=== PATIENT | male | born 1955 | race African-American/Black ===

== ENCOUNTER → 2016-12-04 | Outpatient (CLI) | payer OTHER ==
[~2016-12-04] MED LIST: CIPR-9 PO
[2016-12-04 11:58] LABS: AUTOMATED NEUTROPHIL # 3.2 TH/MM3 (1.8-7.7); BASOPHIL % 0.6 % (0.0-2.0); EOSINOPHIL # 0.1 TH/MM3 (0-0.4); EOSINOPHIL % 1.9 % (0.0-4.0); HEMATOCRIT 47.4 % (39.0-51.0); HEMO FLAGS DIFF FINAL; LYMPH % 32.8 % (9.0-44.0); LYMPHOCYTE # 1.9 TH/MM3 (1.0-4.8); MEAN CELL VOLUME 88.3 FL (80.0-100.0); MEAN CORPUSCULAR HEMOGLOBIN 30.7 PG (27.0-34.0); MEAN CORPUSCULAR HGB CONC 34.8 % (32.0-36.0); NEUT % 55.7 % (16.0-70.0); PLATELET COUNT 217 TH/MM3 (150-450); RED BLOOD COUNT 5.37 MIL/MM3 (4.50-5.90); RED CELL DISTRIBUTION WIDTH 13.1 % (11.6-17.2); WHITE BLOOD COUNT 5.8 TH/MM3 (4.0-11.0)
[2016-12-04 12:37] LABS: ANION GAP 7 MEQ/L (5-15); AST (GOT) 58 U/L (15-37); BLOOD UREA NITROGEN 17 MG/DL (7-18); CHLORIDE 103 MEQ/L (98-107); GLOMERULAR FILTRATION RATE 94 ML/MIN (>89); GLUCOSE,FASTING 85 MG/DL (74-99); POTASSIUM 4.3 MEQ/L (3.5-5.1); SODIUM (NA) 139 MEQ/L (136-145)
[2016-12-04 12:38] LABS: ALT (GPT) 78 U/L (12-78)
[2016-12-04 12:48] LABS: ALKALINE PHOSPHATASE 82 U/L (45-117); HDL CHOLESTEROL 55.1 MG/DL (40.0-60.0); LDL CHOLESTEROL 139 MG/DL (0-99)
== END ==
LOC: CLAB 11:34
PROVIDERS: ATTEND Nurse Practitioner Family
DX: B19.20 Unspecified viral hepatitis C without hepatic coma (principal); I10 Essential (primary) hypertension; R39.12 Poor urinary stream
CPT/HCPCS: 36415; 80053; 80061; 84153; 84443; 85025

== ENCOUNTER → 2016-12-24 | Outpatient (CLI) | payer OTHER ==
[~2016-12-24] MED LIST changes: +GABA300C5 PO; +NAPR500T PO
[2016-12-24 15:39] LABS: BICARBONATE 28.8 MEQ/L (21.0-32.0)
== END ==
LOC: CLAB 14:47
PROVIDERS: ATTEND Nurse Practitioner Family
DX: R97.20 Elevated prostate specific antigen [PSA] (principal)
CPT/HCPCS: 36415; 80069

== ENCOUNTER → 2016-12-25 | Outpatient (CLI) | payer OTHER ==
[~2016-12-25] MED LIST changes: +IOHEXOL 350 MG/ML 10 ML VIAL (for RAD DIAG) IV ONE; +LISI-519 PO; +PROS5TAB PO; +TAMS5CAP PO
--- NOTE | 2016-12-25 15:26 | RADRPT ---
EXAM DATE/TIME: 12/25/2016 14:46 [facility] COMPARISON: No previous studies available for comparison. INDICATIONS : Mass, abnormal PSA. IV CONTRAST: 85 cc Omnipaque 350 (iohexol) IV ORAL CONTRAST: Prescribed oral contrast ingested. RADIATION DOSE: 9.48 CTDIvol (mGy) MEDICAL HISTORY : None SURGICAL HISTORY : None. ENCOUNTER: Initial ACUITY: 1 day PAIN SCALE: 0/10 LOCATION: lower quadrant TECHNIQUE: Volumetric scanning of the abdomen and pelvis was performed. Using automated exposure control and ad justment of the mA and/or kV according to patient size, radiation dose was kept as low as reasonably achievable to obtain optimal diagnostic quality images. DICOM format image data is available electro nically for review and comparison. FINDINGS: LOWER LUNGS: The visualized lower lungs are clear. A small hiatal hernia is noted. LIVER: Homogeneous density without lesion. There is no dilation of the biliary tree. No calcified gallston es. SPLEEN: Normal size without lesion. PANCREAS: Within normal limits. KIDNEYS: Normal in size and shape. There is no mass, stone or hydronephrosis. ADRENAL GLANDS: Within normal limits. VASCULAR: There is no aortic aneurysm. BOWEL/MESENTERY: The stomach, small bowel, and colon demonstrate no acute abnormality. There is no free intraperitone al air or fluid. ABDOMINAL WALL: Within normal limits. RETROPERITONEUM: There is no lymphadenopathy. BLADDER: No wall thickening or mass. REPRODUCTIVE: The prostate gland is markedly enlarged. INGUINAL: There is no lymphadenopathy or hernia. MUSCULOSKELETAL: Sclerotic foci are noted within the left ischium and right iliac crest and are nonspecific. Different ial diagnosis includes bone islands and sclerotic metastases. Bone scan may be helpful for further ev aluation if clinically indicated. CONCLUSION: 1. Markedly enlarged prostate. 2. Sclerotic foci are noted within the left ischium and right iliac crest and are nonspecific. Differ ential diagnosis includes bone islands and sclerotic metastases. Bone scan may be helpful for further evaluation if clinically indicated. 3. Small hiatal hernia. Torres Escudero MD on December 25, 2016 at 15:14 Board Certified Radiologist. This report was verified electronically.
== END ==
LOC: HRAD 13:04
PROVIDERS: ATTEND Family Medicine
DX: R97.20 Elevated prostate specific antigen [PSA] (principal)
CPT/HCPCS: 74177; Q9967

== ENCOUNTER → 2017-01-02 | Outpatient (CLI) | payer OTHER ==
[~2017-01-02] MED LIST changes: -IOHEXOL 350 MG/ML 10 ML VIAL (for RAD DIAG) IV ONE
== END ==
LOC: CLAB 12:12
PROVIDERS: ATTEND Nurse Practitioner Family
DX: R97.20 Elevated prostate specific antigen [PSA] (principal)
CPT/HCPCS: 36415; 84153

== ENCOUNTER → 2017-01-06 | Outpatient (CLI) | payer OTHER ==
--- NOTE | 2017-01-06 18:34 | RADRPT ---
EXAM DATE/TIME: 01/06/2017 12:33 [facility] COMPARISON: CHEST SINGLE AP, October 14, 2015, 20:51. CT BRAIN W/O CONTRAST, October 14, 2015, 22:08. CT ABDOMEN & PELV IS W CONTRAST, December 25, 2016, 14:46. PRIOR BONE SCANS: No correlative bone scan available for comparison. INDICATIONS : Schlerotic focci on left iliac crest. DOSE: 31.3 mCi Tc99m MDP IV IMAGING: SPECT/CT imaging with fusion was performed. RADIATION DOSE: 4.78 CTDIvol (mGy) MEDICAL HISTORY : None SURGICAL HISTORY : None. ENCOUNTER: Initial ACUITY: 1 day PAIN SCALE: 0/10 LOCATION: Right hip. TECHNIQUE: Three hours post intravenous administration of radiotracer, whole body bone scan imaging was performe d. FINDINGS: Images demonstrate a homogeneous pattern of uptake in the soft tissue. No hyperemic areas are identi fied. On delayed scanning, there is focally increased uptake notable in the posterior left seventh ri b which is likely traumatic. Mild degenerative type uptake in the spine, hips and knees. To further evaluate the pelvis, SPECT imaging was performed in sagittal, axial and coronal planes. A ttenuation correction was performed with computed tomography and both the attenuation correction and non-attenuation corrected data sets were reviewed. There is a normal pattern of uptake. No focal abn ormalities are seen. Specifically, no significant abnormal uptake is identified at sites of sclerotic change focally present in the iliac crest and left ischium. CONCLUSION: Sclerotic foci in the pelvis appear benign on bone scan. Uptake involving the posterior left seventh rib, likely traumatic however correlation with CT scan of the chest would be suggested. Isaac Hairston MD on January 06, 2017 at 18:27 Board Certified Radiologist. This report was verified electronically.
== END ==
LOC: HRAD 08:09
PROVIDERS: ATTEND Nurse Practitioner Family
DX: R93.8 Abnormal findings on diagnostic imaging of other specified body structures (principal)
CPT/HCPCS: 78306; 78320; 78399; A9503

== ENCOUNTER → 2017-01-15 | Outpatient (CLI) | payer OTHER ==
[~2017-01-15] MED LIST changes: -CIPR-9 PO; -TAMS5CAP PO
[2017-01-15 11:27] LABS: BICARBONATE 26.2 MEQ/L (21.0-32.0)
== END ==
LOC: CLAB 10:38
PROVIDERS: ATTEND Nurse Practitioner Family
DX: R94.8 Abnormal results of function studies of other organs and systems (principal)
CPT/HCPCS: 36415; 80069

== ENCOUNTER → 2017-01-17 | Outpatient (CLI) | payer OTHER ==
[~2017-01-17] MED LIST changes: +IOHEXOL 350 MG/ML 10 ML VIAL (for RAD DIAG) IV ONE
--- NOTE | 2017-01-17 13:40 | RADRPT ---
EXAM DATE/TIME: 01/17/2017 13:20 [facility] COMPARISON: BONE SCAN (WHOLE BODY) W SPECT, January 06, 2017, 12:33. INDICATIONS : Left 7th rib lesion seen on bone scan. IV CONTRAST: 75 cc Omnipaque 350 (iohexol) IV RADIATION DOSE: 5.61 CTDIvol (mGy) MEDICAL HISTORY : Cancer, Prostate issues. SURGICAL HISTORY : None. ENCOUNTER: Initial ACUITY: 2 weeks PAIN SCALE: 0/10 LOCATION: chest TECHNIQUE: Volumetric scanning of the chest was performed. Using automated exposure control and adjustment of t he mA and/or kV according to patient size, radiation dose was kept as low as reasonably achievable to obtain optimal diagnostic quality images. DICOM format image data is available electronically for review and comparison. Follow-up recommendations for detected pulmonary nodules are based at a minimum on nodule size and pa tient risk factors according to Fleischner Society Guidelines. FINDINGS: LUNGS: There is no consolidation or pneumothorax. No concerning pulmonary nodule is visualized. PLEURA: There is no pleural thickening or pleural effusion. MEDIASTINUM: The heart and great vessels demonstrate no acute abnormality. There is no mediastinal or hilar lymph adenopathy. AXILLAE: Within normal limits. No lymphadenopathy. SKELETAL: Subtle sclerosis focally left seventh rib MISCELLANEOUS: The visualized upper abdominal organs demonstrate no acute abnormality. CONCLUSION: Subtle sclerosis left seventh rib nonspecific. No other focal abnormality is appreci ated. Garry Nayak MD FACR on January 17, 2017 at 13:28 Board Certified Radiologist. This report was verified electronically.
== END ==
LOC: HRAD 12:30
PROVIDERS: ATTEND Nurse Practitioner Family
DX: R94.8 Abnormal results of function studies of other organs and systems (principal)
CPT/HCPCS: 71260; Q9967